=== PATIENT | female | born 1990 | race Caucasian/White ===

== ENCOUNTER 2018-02-21 06:23 | Observation (INO) | payer MEDICAID ==
[2018-02-21] VITALS (16 sets, daily range): BP systolic 95–130; BP diastolic 49–77
[~2018-02-21] VITALS: Ht 172.7 cm; Wt 47.7 kg
[2018-02-21 07:04] LABS: URINE HCG NEGATIVE (NEG)
[2018-02-21 07:09] LABS: CLARITY,URINE CLEAR (Clear); COLOR,URINE YELLOW (Yellow); GLUCOSE, URINE NEGATIVE (Neg); KETONES,URINE 15 mg/dl (Neg); LEUKOCYTE ESTERASE ,URINE MODERATE (Neg); NITRITES, URINE NEGATIVE (Neg); OCCULT BLOOD,URINE SMALL (Neg); PH,URINE 5.5 (4.8-8.0); PROTEIN,URINE NEGATIVE (Neg); UROBILINOGEN,URINE 0.2 E.U/dL (0.2-1.0)
[2018-02-21 07:16] LABS: UA COLLECTION TYPE CLN CATCH MIDSTREAM
[2018-02-21 07:17] LABS: SQUAMOUS EPITHELIAL CELL,UR FEW /LPF (FEW); WBC,URINE TNTC /HPF (0-4)
[2018-02-21 07:18] LABS: BACTERIA,URINE 1+ /HPF (Neg); RBC,URINE 0-2 /HPF (0-2)
[2018-02-21] MEDS ORDERED: CefTRIAXone 2gm/D5W 50ml 50 ML IV SCH (08:00)
[2018-02-21] MEDS ORDERED: normal saline 1000ML IV soln IVB ONE (08:35)
[2018-02-21 09:03] LABS: BASOPHILS % (AUTO) 0 % (0-1); EOSINOPHILS % (AUTO) 0.1 % (0-6); HEMATOCRIT 27.7 % (35.0-45.0); HEMOGLOBIN 9.4 g/dl (12.0-16.0); LYMPHOCYTES # (AUTO) 0.5 X10'3 (1.1-4.8); LYMPHOCYTES % (AUTO) 6.4 % (21-51); MEAN CORPUSCULAR HEMOGLOBIN 29.3 PG (27.0-31.0); MEAN CORPUSCULAR HGB CONC 33.8 % (33.0-36.5); MEAN CORPUSCULAR VOLUME 86.5 FL (78-98); MEAN PLATELET VOLUME 7.8 FL (7.4-10.4); MONOCYTES # (AUTO) 0.2 X10'3 (0-0.9); MONOCYTES % (AUTO) 2.2 % (2-12); NEUTROPHILS # (AUTO) 6.8 X10'3 (1.8-7.7); NEUTROPHILS % (AUTO) 91.3 % (42-75); PLATELET COUNT 127 X10'3 (140-440); RED CELL DISTRIBUTION WIDTH 17.1 % (11.5-14.5); WHITE BLOOD COUNT 7.4 X10'3 (4.5-11.0)
[2018-02-21 09:13] LABS: INR 1.4 INR; PARTIAL THROMBOPLASTIN TIME 27 SECONDS (22-32)
[2018-02-21 09:28] LABS: ALANINE AMINOTRANSFERASE 18 U/L (12-78); ALBUMIN 2.3 G/DL (3.4-5.0); ALBUMIN/GLOBULIN RATIO 0.8 (1.1-1.5); ALKALINE PHOSPHATASE 55 IU/L (46-116); ANION GAP 11 (8-16); ASPARTATE AMINO TRANSFERASE 16 U/L (10-37); BILIRUBIN,TOTAL 0.7 MG/DL (0.1-1.0); BLOOD UREA NITROGEN 12 MG/DL (7-18); CALCIUM 7.4 MG/DL (8.5-10.1); CHLORIDE 108 MMOL/L (99-107); CREATININE 1.09 MG/DL (0.40-0.90); GLUCOSE 102 MG/DL (70-104); MAGNESIUM 1.5 MG/DL (1.5-2.4); POTASSIUM 3.4 MMOL/L (3.5-5.1); SODIUM 139 MMOL/L (135-145); TOTAL CARBON DIOXIDE 20.4 MMOL/L (24-32); TOTAL PROTEIN 5.2 G/DL (6.4-8.2); eGFR 59 ML/MIN
[2018-02-21] MEDS ORDERED: ondansetron/PF 4mg/2ml inj IV PRN ×2 (09:45→16:30)
[2018-02-21] MEDS ORDERED: mag hydrox/Alum hydrox/simeth 30ml oral suspension PO PRN (09:45)
[2018-02-21] MEDS ORDERED: acetaminophen 325mg tablet PO PRN (09:45)
[2018-02-21] MEDS ORDERED: magnesium hydroxide 30ml (MOM) UD suspension PO PRN (09:45)
[2018-02-21] MEDS ORDERED: morphine 4 MG/ML inj SYRINge IV PRN ×3 (09:45→16:30)
[2018-02-21] MEDS: CefTRIAXone/D5W-Rocephin 1gm 50 ML IV SCH (09:45)
[2018-02-21] MEDS ORDERED: HYDR-569 PO (10:31)
[2018-02-21] MEDS ORDERED: morphine 4 MG/ML inj SYRINge IV ONE (10:50)
[2018-02-21] MEDS ORDERED: HYDROmorphone 1 mg/ml syringe IV ONE (11:25)
[2018-02-21] MEDS: normal saline 1000ml 1,000 ML IV SCH ×2 (12:57→20:35)
[2018-02-21] MEDS ORDERED: ringers solution, lacted 1,000 ML IV SCH (16:29)
[2018-02-21] MEDS ORDERED: meperidine/PF 25mg/ml syringe IV PRN ×3 (16:30)
[2018-02-21] MEDS ORDERED: proCHLORperazine 10 MG/2 ml inj IV PRN (16:30)
[2018-02-21] MEDS ORDERED: sevoflurane 250ml liquid IH ONE (16:31)
[2018-02-21] MEDS ORDERED: fentaNYL/PF 50MCG/1 ML 2ML syringe ONE (16:33)
[2018-02-21] MEDS ORDERED: propofol inj 20 ML IV ONE (16:33)
[2018-02-21] MEDS ORDERED: iohexol 300 MG/1 ML 50ml polymer ONE (16:47)
[2018-02-21] MEDS ORDERED: dexamethasone sod phosphate 4mg/ml inj. ONE (17:17)
[2018-02-21] MEDS ORDERED: ondansetron/PF 4mg/2ml inj ONE (17:17)
[2018-02-21] MEDS: HYDROmorphone 1 mg/ml syringe IV PRN ×2 (18:41→22:11)
[2018-02-21] MEDS ORDERED: lactobacillus rhamnosus 10,000 MMU CELLS/CAPSULE PO SCH (20:00)
[2018-02-21] MEDS: lactobacillus rhamnosus 10,000 MMU CELLS/CAPSULE PO SCH (20:36)
[2018-02-22] MEDS: HYDROmorphone 1 mg/ml syringe IV PRN ×2 (01:09→10:26)
[2018-02-22 02:12] VITALS: BP 95/59
[2018-02-22] MEDS: HYDROcodone/acetaminophen 5mg/325mg tablet PO PRN ×3 (04:04→19:30)
[2018-02-22 05:00] VITALS: BP 102/58
[2018-02-22] MEDS: CefTRIAXone/D5W-Rocephin 1gm 50 ML IV SCH (08:06)
[2018-02-22] MEDS: lactobacillus rhamnosus 10,000 MMU CELLS/CAPSULE PO SCH ×2 (08:06→19:28)
[2018-02-22] MEDS: normal saline 1000ml 1,000 ML IV SCH ×2 (08:07→15:41)
[2018-02-22 10:00] VITALS: BP 99/58
[2018-02-22 12:30] LABS: BASOPHILS % (AUTO) 0.1 % (0-1); EOSINOPHILS % (AUTO) 0 % (0-6); HEMATOCRIT 28.2 % (35.0-45.0); HEMOGLOBIN 9.5 g/dl (12.0-16.0); LYMPHOCYTES # (AUTO) 0.8 X10'3 (1.1-4.8); LYMPHOCYTES % (AUTO) 7.9 % (21-51); MEAN CORPUSCULAR HEMOGLOBIN 29.4 PG (27.0-31.0); MEAN CORPUSCULAR HGB CONC 33.8 % (33.0-36.5); MEAN CORPUSCULAR VOLUME 87.1 FL (78-98); MONOCYTES # (AUTO) 1.1 X10'3 (0-0.9); MONOCYTES % (AUTO) 10.1 % (2-12); NEUTROPHILS # (AUTO) 8.7 X10'3 (1.8-7.7); NEUTROPHILS % (AUTO) 81.9 % (42-75); PLATELET COUNT 127 X10'3 (140-440); RED BLOOD COUNT 3.23 X10'6 (4.20-5.60); RED CELL DISTRIBUTION WIDTH 17.6 % (11.5-14.5); WHITE BLOOD COUNT 10.6 X10'3 (4.5-11.0)
[2018-02-22 12:41] LABS: ALBUMIN 2.2 G/DL (3.4-5.0); ANION GAP 4 (8-16); BLOOD UREA NITROGEN 16 MG/DL (7-18); BUN/CREATININE RATIO 21.6 (6.6-38.0); CALCIUM 7.8 MG/DL (8.5-10.1); CHLORIDE 107 MMOL/L (99-107); CREATININE 0.74 MG/DL (0.40-0.90); GLUCOSE 143 MG/DL (70-104); POTASSIUM 3.4 MMOL/L (3.5-5.1); SODIUM 137 MMOL/L (135-145); TOTAL CARBON DIOXIDE 25.6 MMOL/L (24-32); eGFR > 90 ML/MIN
[2018-02-22] MEDS ORDERED: LEVO20CA PO (15:59)
[2018-02-22] MEDS ORDERED: QUET50TA PO (15:59)
[2018-02-22] MEDS ORDERED: LAMO200T2 PO (15:59)
[2018-02-22] MEDS ORDERED: LORA1TAB PO (15:59)
[2018-02-22] MEDS ORDERED: BREX2TAB PO (15:59)
[2018-02-22] MEDS ORDERED: HYDROcodone/acetaminophen 5mg/325mg tablet PO PRN (16:40)
[2018-02-22 18:00] VITALS: BP 99/65
[2018-02-22] MEDS ORDERED: LORazepam 1 MG tablet PO PRN (20:00)
[2018-02-22] MEDS ORDERED: QUEtiapine 25mg tablet PO SCH (21:00)
[2018-02-22 22:00] VITALS: BP 91/56
[2018-02-23] MEDS: normal saline 1000ml 1,000 ML IV SCH ×2 (01:41→09:57)
[2018-02-23 05:00] VITALS: BP 93/50
[2018-02-23] MEDS ORDERED: BREXPIPRAZOLE 1 MG PO SCH (08:00)
[2018-02-23] MEDS ORDERED: lamoTRIgine 100mg tablet PO SCH (08:00)
[2018-02-23] MEDS ORDERED: LEVOMILNACIPRAN HYDROCHLORIDE 20 MG PO SCH (08:00)
[2018-02-23] MEDS: lactobacillus rhamnosus 10,000 MMU CELLS/CAPSULE PO SCH (09:52)
[2018-02-23] MEDS: CefTRIAXone/D5W-Rocephin 1gm 50 ML IV SCH (09:53)
[2018-02-23 10:00] VITALS: BP 103/67
[2018-02-23] MEDS: HYDROcodone/acetaminophen 5mg/325mg tablet PO PRN (10:04)
[2018-02-23] MEDS ORDERED: CIPR-230 PO (12:26)
== END 2018-02-23 14:53 | disposition home or self-care (01) ==
LOC: ER 06:23 → ED HOLD 09:41 → ORTHO 4S 12:12
PROVIDERS: ADMIT Internal Medicine; ATTEND Internal Medicine
DX: N20.2 Calculus of kidney with calculus of ureter (principal); N39.0 Urinary tract infection, site not specified; F17.200 Nicotine dependence, unspecified, uncomplicated; F31.9 Bipolar disorder, unspecified; R91.8 Other nonspecific abnormal finding of lung field; G47.00 Insomnia, unspecified; Z79.899 Other long term (current) drug therapy
CPT/HCPCS: 36415; 52330; 52332; 71045; 76001; 80048; 80053; 81001; 81025; 83605; 83735; 84145; 85025; 85610; 85730; 87040; 87070; 87088; 93005; 96365; 96366; 96375; 96376; 99285; C1758; C1769; C2617; G0378; J0696; J1100; J1170; J2270; J2405; J2704; J3010; J7030; Q9967; A4402; A7000; J7120